=== PATIENT | female | born 1990 | race Caucasian/White ===

== ENCOUNTER 2017-04-30 20:30 | Emergency (ER) | payer OTHER ==
[2017-04-30 21:32] LABS: BILIRUBIN,URINE NEGATIVE (NEGATIVE); GLUCOSE, URINE (UA) NEGATIVE (NEGATIVE); KETONES,URINE (UA) NEGATIVE (NEGATIVE); LEUKOCYTE ESTERASE, URINE NEGATIVE (NEGATIVE); NITRITE,URINE NEGATIVE (NEGATIVE); OCCULT BLOOD,URINE LARGE (NEGATIVE); PROTEIN,URINE NEGATIVE (NEGATIVE); UROBILINOGEN,URINE 0.2 (NORMAL) E.U./dL (NORMAL)
[2017-04-30 21:34] LABS: CLARITY,URINE CLEAR (CLEAR)
[2017-04-30 21:38] LABS: BACTERIA,URINE Rare /HPF (None Seen); SQUAMOUS EPITHELIAL CELL,UR FEW Squamous (<= Few)
[2017-04-30 23:09] LABS: BASOPHILS # (AUTO) 0.1 10^3/uL (0.0-0.1); BASOPHILS % (AUTO) 0.8 %; EOSINOPHILS # (AUTO) 0.2 10^3/uL (0.0-0.7); EOSINOPHILS % (AUTO) 1.5 %; HGB - HEMOGLOBIN 11.9 g/dL (12.0-16.0); MEAN CORPUSCULAR HEMOGLOBIN 29.1 pg (27.0-31.0); MEAN CORPUSCULAR HGB CONC 33.5 g/dL (32.0-36.0); MEAN CORPUSCULAR VOLUME 86.8 fL (81.0-99.0); MEAN PLATELET VOLUME 8.2 fL (7.9-10.8); MONOCYTES # (AUTO) 0.7 10^3/uL (0.0-1.0); MONOCYTES % (AUTO) 6.6 %; NEUTROPHILS % (AUTO) 73.1 %; PLT - PLATELET COUNT 304 10^3/uL (130-450); RED CELL DISTRIBUTION WIDTH 13.1 % (12.0-15.0); WHITE BLOOD COUNT 10.9 x10^3/uL (4.8-10.8)
[2017-04-30 23:22] LABS: ALBUMIN 4.7 g/dL (3.2-5.5); ALBUMIN/GLOBULIN RATIO 1.6 (1.0-2.2); BILIRUBIN,TOTAL 0.5 mg/dL (0.2-1.0); CALCIUM 9.3 mg/dL (8.5-10.3); CREATININE 0.5 mg/dL (0.4-1.0); TOTAL PROTEIN 7.6 g/dL (6.7-8.2)
--- NOTE | 2017-05-01 00:15 | Ultrasound Report ---
EXAM: FIRST TRIMESTER OBSTETRIC ULTRASOUND (Less than 11 weeks) EXAM DATE: 04/30/2017 11:09 PM. CLINICAL HISTORY: . Vaginal bleeding. LMP: 03/18/2017. COMPARISONS: None. TECHNIQUE: Transabdominal and transvaginal ultrasound examination with static image documentation. CLINICAL DATES: EGA 6 weeks 1 day with ANGEL 12/23/2017 based on LMP. ASSESSMENT: Gestational Sac: Single intrauterine. Mean gestational sac diameter: 14.0 mm = 6 weeks 2 days. Embryo: CRL (crown-rump length) 2.7 mm = 6 weeks 1 day. Cardiac activity: 105 beats per minute. Yolk sac: 3.2 mm. Amniotic fluid: Not accurately assessed at this gestational age. Early placenta: Not visible at this gestational age. Other: Collection adjacent to the gestational sac measuring 1.3 x 0.8 x 1.5 cm. MATERNAL STRUCTURES: Uterus: Anteverted. Unremarkable. Cervix: Closed. Right Ovary/Adnexa: Unremarkable. The ovary measures 3.3 x 1.6 x 2.0 cm, volume 5.5 cc. Left Ovary/Adnexa: Unremarkable. The ovary measures 2.7 x 1.7 x 2.3 cm, volume 5.5 cc. Free Fluid: None. Other: On initial transabdominal images a large amount of hemorrhage was seen surrounding the gestati onal sac. On subsequent endovaginal images, much of this hemorrhage had passed and there was a small residual collection. IMPRESSION: 1. Single viable intrauterine at EGA 6 weeks 1 day with ANGEL 12/23/2017 based on crown-rump length, which is concordant with clinical dates. 2. Assigned dating is ANGEL 12/23/2017 based on LMP. 3. Large amount of hemorrhage surrounding the gestational sac on initial transabdominal images. On en dovaginal images, most of the hemorrhage had passed and there was a small residual collection measuri ng 1.3 x 0.8 x 1.5 cm. HERBERTH Referring Provider Line: [phone] SITE ID: [id number]
[2017-05-01] MEDS ORDERED: RHO(D) IMMUNE GLOBULIN 300 MCG SYRINGE IM ONE (01:20)
--- NOTE | 2017-05-01 01:22 | ED Physician Documentation ---
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 patinet states that the pain started yesterday and went away on its own. patient states that today she developed vaginal bleeding. Patient states that she has gone through three pads today. Patient has not had an ultrasound yet in her care. Review of Systems Constitutional: denies: Fever, Chills Eyes: denies: Decreased vision, Photophobia Ears: denies: Ear pain, Drainage/discharge Nose: reports: Reviewed and negative Throat: reports: Reviewed and negative Cardiac: denies: Palpitations Respiratory: reports: Reviewed and negative GI: reports: Abdominal Pain : reports: Vaginal bleeding Skin: denies: Rash, Lesions Neurologic: denies: Generalized weakness, Focal weakness, Near syncope, Syncope Immunocompromised: denies: Immunocompromised PD PAST MEDICAL HISTORY - Past Medical History Past Medical History: No - Past Surgical History Past Surgical History: No - Present Medications Home Medications: Ambulatory Orders Medication Instructions Recorded Confirmed Pnv95/Ferrous Fumarate/FA 04/30/17 [ Vitamin Tablet] - Allergies Allergies/Adverse Reactions: Allergies Allergy/AdvReac Type Severity Reaction Status Date / Time No Known Drug Allergies Allergy Verified 04/30/17 20:56 - Social History Does the pt smoke?: No Smoking Status: Never smoker PD ED PE NORMAL - Vitals Vital signs reviewed: Yes - General General: Alert and oriented X 3, No acute distress, Well developed/nourished - HEENT HEENT: Atraumatic, PERRL - Neck Neck: Supple, no meningeal sign - Cardiac Cardiac: RRR, No murmur - Respiratory Respiratory: No respiratory distress, Clear bilaterally - Abdomen Abdomen: Soft, Non tender, Non distended - Derm Derm: Normal color, Warm and dry, No rash - Extremities Extremities: No deformity, Normal ROM s pain, No edema - Neuro Neuro: Alert and oriented X 3, No motor deficit, No sensory deficit, Normal speech - Psych Psych: Normal mood Results - Vitals Vitals: Vital Signs - 24 hr 04/30/17 05/01/17 22:00 02:08 Heart Rate 79 68 Respiratory 16 15 Rate Blood Pressure 115/64 112/71 O2 Saturation 100 98 Oxygen O2 Source Room air - Labs Labs: Laboratory Tests 04/30/17 04/30/17 04/30/17 21:05 23:01 23:04 WBC 10.9 H RBC 4.10 L Hgb 11.9 L Hct 35.6 L MCV 86.8 MCH 29.1 MCHC 33.5 RDW 13.1 Plt Count 304 MPV 8.2 Neut # 8.0 H Lymph # 2.0 Burke # 0.7 Eos # 0.2 Baso # 0.1 Absolute Nucleated RBC 0.00 Nucleated RBC % 0.0 Sodium Potassium Chloride Carbon Dioxide Anion Gap BUN Creatinine Estimated GFR (MDRD) Glucose Calcium Total Bilirubin AST ALT Alkaline Phosphatase Total Protein Albumin Globulin Albumin/Globulin Ratio Lipase HCG, Quant Urine Color YELLOW Urine Clarity CLEAR Urine pH 6.0 Ur Specific [place] <=1.005 Urine Protein NEGATIVE Urine Glucose (UA) NEGATIVE Urine Ketones NEGATIVE Urine Occult Blood LARGE H Urine Nitrite NEGATIVE Urine Bilirubin NEGATIVE Urine Urobilinogen 0.2 (NORMAL) Ur Leukocyte Esterase NEGATIVE Urine RBC 11-25 H Urine WBC 0-3 Ur Squamous Epith Cells FEW Squamous Urine Bacteria Rare Ur Microscopic Review INDICATED Urine Culture Comments NOT INDICATED Blood Type A NEGATIVE 04/30/17 04/30/17 23:04 23:04 WBC RBC Hgb Hct MCV MCH MCHC RDW Plt Count MPV Neut # Lymph # Burke # Eos # Baso # Absolute Nucleated RBC Nucleated RBC % Sodium 137 Potassium 3.4 L Chloride 102 Carbon Dioxide 24 Anion Gap 11.0 BUN 18 Creatinine 0.5 Estimated GFR (MDRD) 148 Glucose 102 H Calcium 9.3 Total Bilirubin 0.5 AST 18 ALT 18 Alkaline Phosphatase 40 L Total Protein 7.6 Albumin 4.7 Globulin 2.9 Albumin/Globulin Ratio 1.6 Lipase 31 HCG, Quant 9298.00 Urine Color Urine Clarity Urine pH Ur Specific [place] Urine Protein Urine Glucose (UA) Urine Ketones Urine Occult Blood Urine Nitrite Urine Bilirubin Urine Urobilinogen Ur Leukocyte Esterase Urine RBC Urine WBC Ur Squamous Epith Cells Urine Bacteria Ur Microscopic Review Urine Culture Comments Blood Type - Rads (name of study) pelvic ultrasound Radiology: Final report received (viable IUP, with intrauterine hemorrage) PD MEDICAL DECISION MAKING - ED course Complexity details: reviewed old records, reviewed results, re-evaluated patient , considered differential, d/w patient, d/w family ED course: Patient was seen and examined at bedside. IV access was gained and labs were drawn. Imaging was ordered. When patient returned from imaging the results were reviewed. there was a viable IUP and some hemorrhage. patient and family were made aware of the findings and that she was high risk. patient was rh negative and was treated with rhogam. Patient and family were comfortable with the plan and stable for discharge with outpatient follow up. Departure - Departure Disposition: Home, Self Care Clinical Impression: Threatened affecting intrauterine Condition: Good Instructions: ED Miscarriage Poss Follow-Up: primary,care provider [Other] - Within 3 Days Comments: Your diagnostics today showed an intrauterine but you are still at higher risk. You should call your ob on tuesday to schedule a follow up appointment. You should refrain from any heavy lifting or strenuous activity. You will likely bleed over the next couple of days. You should return for dizziness, syncope, more that a few pads an hour or more than six pads a day. Discharge Date/Time: 05/01/17 02:09
[2017-05-01] MEDS ORDERED: RHO(D) IMMUNE GLOBULIN 300 MCG SYRINGE ONE (01:47)
[2017-05-01 02:09] VITALS: BP 112/71
== END 2017-05-01 02:09 | disposition home or self-care (01) ==
LOC: ED 20:30
DX: O20.0 Threatened abortion (principal); Z3A.01 Less than 8 weeks gestation of pregnancy
CPT/HCPCS: 36415; 76801; 76817; 80053; 81001; 81003; 83690; 84702; 85025; 86900; 86901; 87086; 96372; 99283